=== PATIENT | male | born 1960 | race American Indian/Alaskan Native ===

== ENCOUNTER 2019-03-04 06:39 | Day surgery (SDC) | payer OTHER ==
[~2019-03-04 06:39] MED LIST: SODIUM CHLORIDE 0.9% 1000 ML 1,000 ML IV SCH
--- NOTE | 2019-03-04 07:50 | Anesthesia Consultation ---
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
--- NOTE | 2019-03-04 07:51 | Anesthesia Day of Surgery ---
Anesthesia Day of Surgery - Day of Surgery Patient Examined: Yes Patient H&P Reviewed: Yes Patient is NPO: Yes
[2019-03-04] MEDS ORDERED: WATER FOR IRRIG STERILE 250 ML BOTTLE IR ONE (08:26)
[2019-03-04] MEDS ORDERED: PROPOFOL 200 MG/20 ML VIAL IV ONE (08:46)
--- NOTE | 2019-03-04 09:04 | Procedure Note ---
Date of procedure: 03/04/19 Pre-op diagnosis: Colon Ernst;yp Screening/ F/H/O Cancer Post-op diagnosis: other (No Colon Polyps or Diverticular disease noted/ Minor,Internal Hemorrhoid) Procedure: Colonoscopy Anesthesia: MAC Surgeon: GREG ONEAL Estimated blood loss: none Pathology: none Condition: stable
--- NOTE | 2019-03-04 09:05 | Operative Report ---
PROCEDURE: Colonoscopy. INDICATIONS: A 58-year-old -[place] gentleman with a strong family history of cancer. The patient's grandmother had breast cancer. Father had pancreatic cancer. Colonoscopy was done as part of colon polyp screening. He has never had a colonoscopy done before procedure. DESCRIPTION OF PROCEDURE: The procedure was done after getting informed consent with MAC anesthesia. Initial rectal exam was unremarkable. Instrument was passed through the rectum onto the cecum, which was identified with ileocecal valve and the appendiceal orifice. Visualization was fair to good. Cecum, ascending colon, transverse colon, descending colon, and sigmoid showed normal mucosa. There was no evidence of any colon polyps or diverticular disease and the rectum showed minor internal hemorrhoid on the retroverted view. ASSESSMENT: Colon polyp screening, no colon polyps or diverticular disease noted. Minor internal hemorrhoid. The patient will be asked to resume previous medication. Follow up in the office in 1-2 weeks' time because of a strong family history of cancer, he should have a repeat colonoscopy in 5 years' time. Procedure was done in the GI lab with assistance of the GI lab team, which included a RN annabelle Lynne Terrell Nelson and with assistance of Anesthesia. JOB# [id number] SAL/RODRIGO STEPHEN
[2019-03-04 09:42] VITALS: BP 123/82
--- NOTE | 2019-03-04 09:52 | Post Anesthesia Evaluation ---
- Post Anesthesia Evaluation Patient Participated: Yes Airway Patent: Yes Stable Respiratory Function: Yes Nausea/Vomiting: No Temp > 96.8F: Yes Pain Manageable: Yes Adequeate Hydration: Yes Anesthesia Complications: No
[2019-03-04] MEDS ORDERED: LIDOCAINE MPF (2%) 20 MG/1 ML VIAL 5 ML ONE (10:00)
== END 2019-03-04 06:40 | disposition home or self-care (01) ==
LOC: GIO 06:39
DX: Z12.11 Encounter for screening for malignant neoplasm of colon (principal); K64.8 Other hemorrhoids; I10 Essential (primary) hypertension; Z80.0 Family history of malignant neoplasm of digestive organs; Z80.3 Family history of malignant neoplasm of breast; Z98.890 Other specified postprocedural states; Z96.641 Presence of right artificial hip joint
CPT/HCPCS: 45378; J2704; J7030